=== PATIENT | male | born 1985 | race Caucasian/White ===

== ENCOUNTER 2019-11-22 17:43 | Emergency (ER) | payer BC, SELFPAY ==
[2019-11-22 17:49] VITALS: BP 135/71; PULSE 77; RESP 18; TEMP 36.9; O2SAT 100
--- NOTE | 2019-11-22 17:51 | PC.NURSE ---
This RN called [facility] for pt. Spoke Linette. Linette states that Zoloft can have peek affect anywhere from 4 1/2- 8 1/2 hours. possible affects could mild tachy , mild drowsiness and irritably. Linette states she will call back later to check on pt.
--- NOTE | 2019-11-22 18:04 | PC.NURSE ---
Pts fiance called crying inquiring on status of pt. Informed pt that pt is allowed to have 1 well visitor and has to be same pt at all times.
--- NOTE | 2019-11-22 18:08 | ECG_ITS ---
Measurements Intervals [place] Rate: 67 P: 50 ID: 136 QRS: 16 QRSD: 96 T: 44 QT: 396 QTc: 419 Interpretive Statements SINUS RHYTHM WITH SINUS ARRHYTHMIA NORMAL ECG Electronically Signed On 11-22-2019 20:20:38 CDT by Ry Baptiste D.O.
--- NOTE | 2019-11-22 18:10 | ED.GENADULT ---
HPI - General Adult General Chief complaint: Overdose Stated complaint: OD Time Seen by Provider: 11/22/19 17:49 Source: patient History of Present Illness HPI narrative: Patient is 34 y/o male complaining of overdose. He states that he took 9 tabs of 100 mg Zoloft approximately 4 hours ago. He states that he took those pill to make himself relax. He denies wanting to injure himself. He states that he felt hot and heart racing , but those symptoms have resolved. Related Data Allergies Allergy/AdvReac Type Severity Reaction Status Date / Time No Known Allergies Allergy Unverified 10/03/17 10:40 Review of Systems Constitutional: Constitutional: Denies chills, Reports excessive sweating, Denies fever(s), Denies headache(s) and Denies weakness Eyes: Eyes: Denies blurry vision ENT: Denies headache(s) and Denies neck pain Cardiovascular: Cardiovascular: Denies chest pain, Reports rapid heart rate and Denies dyspnea Respiratory: Respiratory: Denies cough and Denies dyspnea Gastrointestinal: Gastrointestinal: Denies abdominal pain, Denies diarrhea, Denies nausea and Denies vomiting Genitourinary: Genitourinary: Denies hematuria and Denies dysuria Musculoskeletal: Musculoskeletal: Denies back pain and Denies neck pain Neurologic: Denies headache(s) and Denies weakness PMFSH Family History Family History Mother Hypertension Social History Social History Alcohol intake: never Gender identity (if verbalized by the patient): Male Exam Const: General: no acute distress and well developed Orientation/consciousness: oriented to person, oriented to place, oriented to time and patient oriented x3 HENMT: Head: normocephalic Ears: external ears normal General nose exam: Normal external nose present Eyes: General: appearance normal, both eyes and all related structures Conjunctivae: conjunctivae normal Neck: Neck: normal visual inspection and full ROM Chest: Chest palpation & inspection: normal inspection of the chest and no tenderness Resp: Effort & Inspection: normal respiratory effort Auscultation: clear to auscultation bilaterally Cardio: Rate: regular rate Rhythm: regular rhythm GI: GI Palp: No abdominal tenderness and Yes Soft to palpation Skin: General skin exam: normal color and turgor normal Neuro: General: oriented to person, oriented to place, oriented to time and patient oriented x3 Cognition (Neuro): normal cognition Extrem: General: normal to inspection, full ROM and no pedal edema Psych: Appearance: grossly normal Mental Status: mental status grossly normal Affect: normal affect Course Reevaluation(s) Reevaluation #1: Patient is medically clear. Date: 11/22/19 Time: 20:52 Reevaluation #2: Rechecked. Patient is feeling well. He denies any SI or HI. He has been cleared by crisis for discharge. Date: 11/22/19 Time: 22:45 Vital Signs Vital signs: Vital Signs Temperature 36.9 C 11/22/19 17:49 Pulse Rate 77 11/22/19 17:49 Respiratory Rate 18 11/22/19 17:49 Blood Pressure 135/71 11/22/19 17:49 Pulse Oximetry 100 11/22/19 17:49 Temperature 36.7 C 11/22/19 22:51 Pulse Rate 80 11/22/19 22:51 Respiratory Rate 18 11/22/19 22:51 Blood Pressure 128/80 11/22/19 22:51 Pulse Oximetry 99 11/22/19 22:51 Medical Decision Making Vital Signs Vital Signs: Vital Signs Temperature 36.9 C 11/22/19 17:49 Pulse Rate 77 11/22/19 17:49 Respiratory Rate 18 11/22/19 17:49 Blood Pressure 135/71 11/22/19 17:49 Pulse Oximetry 100 11/22/19 17:49 Temperature 36.7 C 11/22/19 22:51 Pulse Rate 80 11/22/19 22:51 Respiratory Rate 18 11/22/19 22:51 Blood Pressure 128/80 11/22/19 22:51 Pulse Oximetry 99 11/22/19 22:51 Lab Data Result diagrams: 11/22/19 18:21 11/22/19 18:21 Labs: Lab Results 11/09
--- NOTE | 2019-11-22 18:22 | PC.NURSE ---
PTs fiance here to see pt. PT is ok with visitor
[2019-11-22 18:30] LABS: Basophils Percent Auto 0.2 % (0.2-1.2); Eosinophils Absolute Auto 0.1 K/mm3 (0-0.3); Eosinophils Percent Auto 0.6 % (0-4.4); Hematocrit 44.6 % (42.0-52.0); Hemoglobin 15.5 g/dL (14.0-18.0); Immature Granulocyte Absolute 0.08 K/mm3 (0.00-0.031); Immature Granulocyte Percent A 0.6 % (0-0.5); Lymphocytes Absolute Auto 1.65 K/mm3 (0.9-3.2); Lymphocytes Percent Auto 11.8 % (18.3-44.2); Mean Corpuscular HGB Conc 34.8 g/dl (32-36); Mean Corpuscular Hemoglobin 29.6 pg (26-34); Mean Corpuscular Volume 85.3 fl (80-100); Mean Platelet Volume 10.1 fl (7.4-10.4); Monocytes Absolute Auto 0.7 K/mm3 (0.1-0.6); Monocytes Percent Auto 4.8 % (2.6-8.5); Neutrophils Absolute Auto 11.5 K/mm3 (1.3-6.7); Platelet Count Result 241 k/mm3 (150-375); Red Blood Count 5.23 M/mm3 (4.6-6.20); Red Cell Distribution Width 12.3 % (11.5-14.5)
--- NOTE | 2019-11-22 19:14 | PC.NURSE ---
This RN into pts room to inform him that we still need a urine sample. Informed pt that if still unable to give sample we will have to straight cath him.
--- NOTE | 2019-11-22 19:18 | PC.NURSE ---
assumed care of pt at 1915 from Boris Redd.
[2019-11-22 19:26] LABS: Alanine Aminotransferase 25 U/L (4-50); Albumin Level 4.8 g/dL (3.5-5.1); Alkaline Phosphatase 88 U/L (38-126); Aspartate Amino Transferase 26 U/L (17-59); Bilirubin,Total 0.8 mg/dL (0.2-1.3); Blood Urea Nitrogen 11 mg/dL (9-20); Calcium 9.4 mg/dL (8.4-10.2); Carbon Dioxide 24 mmol/L (22-30); Chloride 102 mmol/L (98-107); Estimated CRCL calculation 97 ml/min; Estimated Glomerular Filt Rate > 60; Glucose 118 mg/dL (75-110); Potassium 3.7 mmol/L (3.4-5.0); Sodium 136 mmol/L (137-145)
[2019-11-22 19:34] LABS: Ethanol < 10 mg/dL (<10)
[2019-11-22 20:04] LABS: Add Urine Microscopic? NO; Appearance Urine Clear (Clear); Bilirubin Urine Negative (Negative); Blood Urine Negative (Negative); Color Urine Yellow (Yellow); Glucose Urine UA Negative (Negative); Ketones Urine Negative (Negative); Leukocyte Esterase Ur Negative LEU/UL (Negative); Nitrate Urine Negative (Negative); Protein Urine Negative (Negative); Specific Grav Ur 1.013 (1.001-1.035); Urobilinogen Urine Negative mg/dL (<2.0)
[2019-11-22 20:25] LABS: Amphetamine Screen Urine Negative (Negative); Barbiturate Screen Urine Negative (Negative); Benzodiazepines Screen Urine Negative (Negative); Cannabinoid Screen Urine Positive (Negative); Cocaine Screen Urine Negative (Negative); Methadone Screen Urine Negative (Negative); Opiate Screen Urine Negative (Negative); Phencyclidine Screen Urine Negative (Negative)
[2019-11-22 20:42] LABS: Acetaminophen < 10 ug/mL (10-30); Salicylate < 1.0 mg/dL (2-20)
--- NOTE | 2019-11-22 22:00 | PC.NURSE ---
crisis at bedside.
[2019-11-22 22:29] VITALS: BP 132/80; PULSE 80; RESP 18; O2SAT 97
[2019-11-22 22:51] VITALS: BP 128/80; PULSE 80; RESP 18; TEMP 36.7; O2SAT 99
== END 2019-11-22 22:53 | disposition home or self-care (01) ==
PROVIDERS: Emergency Provider Emergency Medicine
DX: T43.222A Poisoning by selective serotonin reuptake inhibitors, intentional self-harm, initial encounter (principal)
CPT/HCPCS: 36415; 80053; 80307; 81003; 85025; 93005; 99284